=== PATIENT | female | born 1970 | race Caucasian/White ===

== ENCOUNTER → 2017-09-28 | Outpatient (CLI) | payer OTHER ==
[~2017-09-28] MED LIST: CLOT1CRE TOP; HYDR-3516 PO; IBUP1TAB7 PO; Z.0.NO CURRENT MEDS
--- NOTE | 2017-09-29 19:12 | EKG ---
Date Performed: 09/28/2017 Time Performed: 13:23:00 PTAGE: 47 years EKG: Sinus rhythm NORMAL ECG NO PREVIOUS TRACING DOCTOR: Israel Saleh Interpretating Date/Time 09/29/2017 19:11:38
== END ==
LOC: CPRE 12:54
PROVIDERS: ATTEND Obstetrics & Gynecology
DX: Z01.810 Encounter for preprocedural cardiovascular examination (principal); Z01.812 Encounter for preprocedural laboratory examination; R10.2 Pelvic and perineal pain; D25.9 Leiomyoma of uterus, unspecified
CPT/HCPCS: 86850; 86900; 86901; 93005

== ENCOUNTER 2017-09-29 05:37 | Observation (INO) | payer OTHER ==
--- NOTE | 2017-09-28 15:56 | MH ---
cc: Taz Barrera MD DATE OF ADMISSION: 09/29/2017 ADMITTING DIAGNOSIS: Pelvic pain with degenerating fibroid. HISTORY OF PRESENT ILLNESS: The patient is a 47-year-old single white female, para 3-0-0-3, who has developed right-sided pelvic pain, severe for over 2 weeks, had initially started about 2 or 3 months ago, had ER evaluation, CT scan was normal. She had increased symptoms on 09/22/2017 and went to the ER. Ultrasound showed a uterus with a degenerating fibroid on the right side consistent with her region of pain. Ovaries could not be seen. She has failed to improve with analgesics such as Motrin, Tramadol and Lortab. She would like to proceed with surgical evaluation. PREVIOUS SURGERY: In the year 1999, she had a tubal. In 2007, had endometrial ablation. MEDICATIONS: 1. Motrin. 2. Tramadol. 3. Lortab. ALLERGIES: PENICILLIN. TRANSFUSIONS: None. OBSTETRIC HISTORY: Three vaginal deliveries. SOCIAL HISTORY: She is single. She is employed at [employer]. Alcohol, tobacco and drugs are none. FAMILY HISTORY: Noncontributory. REVIEW OF SYSTEMS: Negative. PHYSICAL EXAMINATION: GENERAL: This is a middle-aged white female, overweight. VITAL SIGNS: Height 5 feet, 9 inches, HEENT: Exam normal. CHEST: Clear. HEART: Regular rate. BREASTS: Symmetrical. ABDOMEN: Benign. PELVIC: Normal external genitalia and BUS. Vagina is normal. Cervix normal. Uterus is enlarged, tender on the right side of the fundus. Adnexa nonpalpable. ASSESSMENT: As above. PLAN: She now presents for laparoscopy, probable LASH procedure, possible BSO, possible SINDHU-BSO. While in the office she was explained all procedures, the risks, benefits and complications. The patient is aware of the procedure is intended to relieve her pain, but may not relieve all symptoms. She would like to proceed. MD JACOB Bhat/SB , 02:50 PM , 03:54 PM
[~2017-09-29] VITALS: Ht 177.8 cm; Wt 113.5 kg
[~2017-09-29 05:37] MED LIST changes: -CLOT1CRE TOP; -Z.0.NO CURRENT MEDS
[2017-09-29] MEDS ORDERED: SODIUM CHLORID 0.9% 500 ML IV PRN (07:15)
[2017-09-29] MEDS ORDERED: CHLORHEXIDINE GLUCONATE 2 % 1 PACK (2 CLOTHS) TOPICAL PRN (07:15)
[2017-09-29] MEDS ORDERED: POVIDONE IODINE 5% (ANTISEPSIS KIT) 4 APPLICATIONS EACH NARE PRN (07:15)
[2017-09-29] MEDS ORDERED: LACTATED RINGER'S 1000 ML IV PRN (07:15)
[2017-09-29] MEDS ORDERED: METOPROLOL TARTRATE 25 MG TAB PO PRN (07:15)
[2017-09-29] MEDS ORDERED: ACETAMINOPHEN 1000 MG/100 ML 100 ML IV ONE (07:30)
[2017-09-29] MEDS ORDERED: CIPROFLOXACIN/DEXT 400 MG/200 ML IV ONE (08:00)
[2017-09-29] MEDS ORDERED: BUPIVACAINE LIPOSOME PF 1.3% 20 ML VIAL ONE (08:23)
[2017-09-29] MEDS ORDERED: SODIUM CHLORIDE 0.9% 20 ML VIAL ONE (09:18)
[2017-09-29] MEDS ORDERED: *morphine SULFATE 4 MG/ML PERIprocedure ONLY ONE (09:47)
--- NOTE | 2017-09-29 09:50 | MP ---
cc: Taz Barrera MD DATE OF OPERATION: 09/29/2017 PREOPERATIVE DIAGNOSIS: Pelvic pain, degenerating fibroids. POSTOPERATIVE DIAGNOSIS: Pelvic pain, degenerating fibroids. PROCEDURE: Laparoscopy with a laparoscopic-assisted supracervical hysterectomy, bilateral salpingectomy. ANESTHESIA: General, ET. SURGEON: Taz Barrera MD INSURANCE INVESTIGATOR: JACQUELINE Subramanian ESTIMATED BLOOD LOSS: 100 mL FLUIDS: 1.1 liter crystalloid. OBJECTIVE FINDINGS: Following induction of adequate general endotracheal anesthesia, the patient was prepped and draped supine on the operating table in the usual sterile fashion with the bladder being drained via Solorio catheterization. The abdomen was opened through a 3 cm curving infraumbilical incision using a knife cut down through the skin to the fascia. The fascia was opened transversely, stripped from the muscles, the rectus muscle split in the midline and the peritoneum opened sharply without incident. The GelPort was placed, laparoscope inserted. A 5 port was placed in the left lower quadrant and an AirSeal port in the right lower quadrant. The uterus was about 12-weeks size, multiple fibroids. Ovaries were normal. Tubes appeared with interruption. Cul-de-sacs were clear. Liver edge was normal. Working first on the left, harmonic scalpel was used to incise the left mesosalpinx, left round ligament, left broad ligament, left-sided bladder flap and left uterine vessels. Same on the right. Harmonic scalpel was now used to amputate the fundus from the cervix and the fundus and tubes extracted in a pouch through the GelPort site. Irrigation performed. Low pressure tests were done in the Trendelenburg and neutral position. There was no bleeding. Ureters were inspected, good peristalsis. The operative site was now coated with Evicel. GelPort was removed. Peritoneum was sutured with running 2-0 Vicryl, the fascia with a running locking stitch of 0 Vicryl from corners to the midline and tied, the subcutaneous closed with running 3-0 Vicryl and the skin with a running subcuticular 3-0 Monocryl. The scope was now reinserted through the lower port to inspect the GelPort site; it was well closed. No entrapment of viscera or tissue. The pelvis was inspected with no bleeding so the scope was removed, gas was allowed to escape. The small ports removed, sutured with 3-0 Monocryl. The patient was to receive a TAP block, then moved to the recovery room. MD JACOB Bhat/GIOVANNY , 09:26 AM , 09:48 AM
[2017-09-29] MEDS ORDERED: MIDAZOLAM HCL 2 MG/2 ML VIAL ONE (09:53)
[2017-09-29] MEDS ORDERED: *MEPERIDINE 25 MG INJ VIAL PERIprocedural Use ONLY ONE (09:53)
[2017-09-29] MEDS ORDERED: MORPHINE SULFATE 4 MG/ML INJ ONE (09:54)
[2017-09-29] MEDS: DOCUSATE SODIUM 100 MG CAP PO SCH ×2 (10:00→21:20)
[2017-09-29] MEDS: KETOROLAC TROMETHAMINE 30 MG/ML (IVP) VIAL IVP SCH ×3 (10:00→21:20)
[2017-09-29] MEDS: D5-1/2 NS + KCL 20 MEQ INJ 1,000 ML IV SCH ×2 (10:00→21:25)
[2017-09-29] MEDS ORDERED: HYDROmorphone HCL PF 1 MG/ML VIAL IV PUSH PRN (10:00)
[2017-09-29] MEDS: ACETAMINOPHEN 1000 MG/100 ML VIAL IV SCH ×2 (10:00→18:27)
[2017-09-29] MEDS ORDERED: diphenhydrAMINE HCL 25 MG CAP PO PRN (10:00)
[2017-09-29] MEDS ORDERED: ZOLPIDEM TARTRATE 5 MG TAB PO PRN (10:00)
[2017-09-29] MEDS ORDERED: SUGAMMADEX SODIUM 200 MG/2 ML VIAL IV PUSH ONE (10:20)
[2017-09-29] MEDS ORDERED: MORPHINE SULFATE 2 MG/ML INJ ONE (10:31)
[2017-09-29] MEDS: HYDROmorphone HCL PF 2 MG/ML VIAL IV PUSH PRN ×2 (11:16→22:23)
[2017-09-29 11:22] VITALS: BP 128/73; PULSE 75; RESP 16; TEMP 97.6; O2SAT 99
[2017-09-29] MEDS ORDERED: ROCURONIUM INJ 50 MG/5 ML SYRINGE IV PUSH ONE (12:00)
[2017-09-29] MEDS ORDERED: PROPOFOL 200 MG/20 ML AMP IV ONE (12:00)
[2017-09-29] MEDS ORDERED: PROMETHAZINE INJ 25 MG/ML VIAL IM PRN (12:00)
[2017-09-29] MEDS ORDERED: KETOROLAC TROMETHAMINE 30 MG/ML (IVP) VIAL IV PUSH ONE (12:00)
[2017-09-29] MEDS ORDERED: DEXAMETHASONE SOD PHOS 4 MG/ML VIAL IV ONE (12:00)
[2017-09-29] MEDS ORDERED: ONDANSETRON HCL 4 MG/2 ML VIAL IV PUSH PRN (12:00)
[2017-09-29] MEDS ORDERED: ONDANSETRON HCL 4 MG/2 ML VIAL IV ONE (12:00)
[2017-09-29] MEDS ORDERED: LIDOCAINE HCL 1% PF 5 ML SYRINGE OTHER ONE (12:00)
[2017-09-29] MEDS ORDERED: GLYCOPYRROLATE 1 MG/5 ML SYRINGE IV PUSH ONE (12:00)
[2017-09-29 14:40] LABS: HEMATOCRIT 41.7 % (35.0-46.0); HEMOGLOBIN 14.5 GM/DL (11.6-15.3)
[2017-09-29 16:15] VITALS: BP 128/67; PULSE 89; RESP 16; TEMP 98.5; O2SAT 96
[2017-09-29 20:39] VITALS: BP 106/74; PULSE 74; RESP 17; TEMP 98.1
[2017-09-30 00:35] VITALS: BP 103/68; PULSE 90; RESP 18; TEMP 98.5
[2017-09-30] MEDS: ACETAMINOPHEN 1000 MG/100 ML VIAL IV SCH ×2 (02:00→09:25)
[2017-09-30] MEDS: D5-1/2 NS + KCL 20 MEQ INJ 1,000 ML IV SCH ×2 (02:00→09:25)
[2017-09-30] MEDS: KETOROLAC TROMETHAMINE 30 MG/ML (IVP) VIAL IVP SCH ×2 (03:21→09:25)
[2017-09-30 04:31] VITALS: BP 104/59; PULSE 72; RESP 17; TEMP 98.5
[2017-09-30 05:57] LABS: AUTOMATED NEUTROPHIL # 12.9 TH/MM3 (1.8-7.7); BASOPHIL % 0.2 % (0.0-2.0); HEMATOCRIT 38.4 % (35.0-46.0); HEMOGLOBIN 12.8 GM/DL (11.6-15.3); LYMPH % 6.3 % (9.0-44.0); LYMPHOCYTE # 0.9 TH/MM3 (1.0-4.8); MEAN CELL VOLUME 84.9 FL (80.0-100.0); MEAN CORPUSCULAR HEMOGLOBIN 28.2 PG (27.0-34.0); MEAN CORPUSCULAR HGB CONC 33.2 % (32.0-36.0); MEAN PLATELET VOLUME 9.7 FL (7.0-11.0); MONO % 4.9 % (0.0-8.0); MONOCYTE # 0.7 TH/MM3 (0-0.9); NEUT % 88.6 % (16.0-70.0); PLATELET COUNT 205 TH/MM3 (150-450); RED BLOOD COUNT 4.53 MIL/MM3 (4.00-5.30); RED CELL DISTRIBUTION WIDTH 13.2 % (11.6-17.2); WHITE BLOOD COUNT 14.6 TH/MM3 (4.0-11.0)
[2017-09-30 06:36] LABS: BICARBONATE 25.8 MEQ/L (21.0-32.0); CALCIUM 8.1 MG/DL (8.5-10.1); CREATININE 0.75 MG/DL (0.50-1.00)
[2017-09-30 08:42] VITALS: BP 115/57; PULSE 77; RESP 18; TEMP 98.6; O2SAT 95
[2017-09-30] MEDS: DOCUSATE SODIUM 100 MG CAP PO SCH (09:24)
--- NOTE | 2017-09-30 10:30 | HHI.DCPOC ---
Discharge Care Plan Report Symptoms to Your Doctor -Temperature above 100.5 degrees -Redness, of incision or excessive or foul smelling drainage -Unusual pain or calf pain -Increased vaginal bleeding -Painful or difficulty urinating -Feelings of extreme sadness or anxiety after 2 weeks Goals to Promote Your Health * To prevent worsening of your condition and complications * To maintain your health at the optimal level Directions to Meet Your Goals Take your medications as prescribed Follow your dietary instruction Follow activity as directed Ensure plenty of rest for recovery Drink fluids for hydration Keep your appointments as scheduled Take your immunizations and boosters as scheduled If your symptoms worsen call your PCP, if no PCP go to Urgent Care Center or Emergency Room Smoking is Dangerous to Your Health. Avoid second hand smoke Call the 24-hour crisis hotline for domestic abuse at Taz Barrera MD Sep 30, 2017 10:30
== END 2017-09-30 12:19 | disposition home or self-care (01) ==
LOC: HSDC 05:37 → HSDI 09:22 → H1EA 10:54
PROVIDERS: ADMIT Obstetrics & Gynecology; ATTEND Obstetrics & Gynecology
DX: R10.2 Pelvic and perineal pain (principal); D25.9 Leiomyoma of uterus, unspecified; Z87.891 Personal history of nicotine dependence
CPT/HCPCS: 00840; 58542; 80048; 85014; 85018; 85025; 88307; 94150; C9290; G0378; J0131; J0744; J1100; J1170; J1885; J2175; J2250; J2270; J2405; J3010; J3480; J7120